=== PATIENT | female | born 2005 | race Two or more races ===

== ENCOUNTER 2025-01-26 10:36 | Outpatient (AMB) | payer MEDICAID, SELFPAY ==
[2025-01-26 11:11] VITALS: BP 112/70; PULSE 76; RESP 17; TEMP 36.2; O2SAT 98; BMI 28.0
--- NOTE | 2025-01-26 11:11 | AMB.OBINITIA ---
Vital Signs 01/26/25 11:11 Height 1.57 m Height Method Measured Weight 69.456 kg Weight Measurement Method Standing Scale BMI 28.0 BP 112/70 Blood Pressure Source Automatic Cuff Blood Pressure Location Right Upper Arm Position Sitting Respiration 17 Pulse 76 Pulse Source Monitor Temp 97.2 F Temp Source Temporal Artery Scan Pulse Oximetry (%) 98 Oxygen Delivery Method Room Air Allergies/Home Meds Allergies & Medications Allergies No Known Allergies Allergy (Verified 01/26/25 11:11) Medication Reconciliation vits no.126-ferrous fum 28 mg iron-folic acid 800 mcg tablet (Classic ) tab PO 01/26/25 [History Confirmed 01/26/25] Intake Visit Data Collection New Patient or Established: New Patient (never been to [facility]) Reason for Visit:: OBI TRANSFER Consent obtained for Telemed Visit: No Seen by Clinical Staff ONLY (RN/MA): No Restaurant Bartender Required: No Do You Feel Safe at Home: Yes Authorities Contacted: N/A PCP or OBGYN visit in last 3 months: No Hx Now: Yes Are you currently on any form of Control: No Last menstrual period: 06/21/24 Pain Present Currently: No Pain Scale Used: López-Benoit/Numerical Pain scale:: 0 Smoking Status Smoking Status: Never smoker Questionnaires Covid-19 Vaccine Questionnaire Has patient been vacinated for Covid-19 Have you been vacinated for Covid-19: No PHQ-9 PHQ-2 Over the last 2 weeks, how often have you been bothered by any of the following problems? 1. Little interest or pleasure in doing things: not at all 2. Feeling down, depressed, or hopeless: not at all Total score: 0 PHQ-9 3. Trouble falling or staying asleep, or sleeping too much: Not at all 4. Feeling tired or having little energy: Not at all 5. Poor appetite or overeating: Not at all 6. Feeling bad about yourself - or that you are a failure or have let yourself or your family down: Not at all 7. Trouble concentrating on things, such as reading the newspaper or watching television: Not at all 8. Moving or speaking so slowly that other people could have noticed? - Or the opposite - being so fidgety or restless that you have been moving around a lot more than usual: not at all 9. Thoughts that you would be better off or of hurting yourself in some way: Not at all Total score: 0 If you checked off any problems, how difficult have these problems made it for you to do your work, take care of things at home, or get along with other people?: not difficult at all Source: Developed by Drs. Jeramy Vila, Fátima Bobo, Celestino Reid and colleagues, with an educational eduar from [employer]. Social History Living Situation History Lives With: Family Housing: House Tobacco History Smoking Status: Never smoker Alcohol History Alcohol Intake: Never Domestic Abuse History Do You Feel Safe at Home: Yes History of Present Illness HPI Narrative 19-year-old 1 para 0 for OBI. Patient is a transfer from [facility] with records. She reports that she has not had any problems of the . Last. Was June 21, 2024. This gives due date March 28, 2025. First ultrasound was very 28. Patient was 8 weeks 2 and this confirmed dates. Patient also had an growth scan in December and this showed normal anatomy, normal fluid. EFW in the 36 percentile and good growth and confirm dates. Patient denies social habits. Denies surgery. Denies chronic illness. Patient is O+, antibody screen negative, RPR nonreactive, rubella immune, hepatitis B negative, hep C negative, HIV negative, GC and Chlamydia were negative. Patient's AFP, NIPT and carrier screens were all negative. Patient reports she passed her 1 hour GTT. Her A1c was 5.0. Fetus is active per patient. Denies leaking, denies bleeding, denies contractions OB Initial Visit OB Flowsheet OB Flowsheet Initial Weight: Not Recorded Date <del>?</del> EGA Weight BP Alb Glu CTX Pres Fundal ht FHR Mov Dilation Station Effacement Hx Notes Visit Note 01/26/25 <del>?</del> 31w 2d 69.456 kg 112/70 absent unknown 30 145 active 19 yo for OBI. IUP at 31 weeks. Patient declines Tdap today. Patient is a transfer from Dr. Joaquin's office with records. Denies social habits. Denies surgery. Denies chronic illness. Reports good movement. Denies leaking, bleeding, contractions. Reviewed labs and dates with patient. Discussed Tdap. Patient declines. labor precautions given. Increase fluids. Discussed diet and weight. Return in 2 weeks Menstrual History Menstrual reliability: definite Flow: normal Menstrual regularity: regular Monthly: Yes Age at menarche: 11 On control pills at conception: No Date of positive home test: 07/30/24 OB History : 1 Para: 0 Hx # Pregnancies: 0 Hx Total # of Abortions (Spontaneous & Elective): 0 # of Living Children: 0 Infection History & Risk Evaluation History of STDs: none HIV risk evaluation: low risk Hepatitis B risk evaluation: low risk Patient or partner has history of Genital Herpes: No Genetic Screening & History Genetic Screening/Teratology Counseling - Includes patient, baby's father, or anyone in either family with: 1. Patient's age 35 years or older as of estimated date of delivery: No 2. Thalassemia (Welsh, Upper Sorbian, Mediterranean, or Background); MCV less than 80: No 3. Neural Tube Defect (Meningomyelocele, Spina Bifida, or Anencephaly): No 4. Congenital Heart Defect: No 5. Down Syndrome: No 6. Harley-Sachs (Ashkenazi Anabaptism, Cajun, [place]ian [place]): No 7. Fredrick Disease (Ashkenazi Anabaptism): No 8. Familial Dysautonomia (Ashkenazi Anabaptism): No 9. Sickle Cell Disease or Trait (): No 10. Hemophilia or other blood disorders: No 11. Muscular Dystrophy: No 12. Cystic Fibrosis: No 13. Clarksdale's Chorea: No 14. Mental Retardation/Autism: No 15. Other inherited genetic or chromosomal disorder: No 16. Maternal Metabolic Disorder (EG,TYPE 1 Diabetes, PKU): No 17. Patient or baby's father had a child with defects not listed above: No 18. Recurrent loss or a stillbirth: No 19. Medications (including supplements, vitamins, herbs or otc drugs)/illicit/recreational drugs/alcohol since last menstrual period: No 20. Any other: No Infection History 1. Live with someone with TB or exposed to TB: No 2. Rash or viral illness since last menstrual period: No 3. Hepatitis B,C: No Other (see comments) Source: [employer] Review of Systems Review of Systems Systems Reviewed: All systems reviewed, normal except as documented Exam General Limitations: no limitations General Appearance: alert, in no apparent distress, comfortable, cooperative, healthy appearing, well developed and well groomed Head Head exam: atraumatic, normocephalic and normal inspection Chest Chest inspection: Present normal inspection and symmetric chest wall rise Resp Respiratory exam: Present normal lung sounds bilaterally Card Cardiovascular exam: Present regular rate, normal rhythm and normal heart sounds Abdominal Abdominal exam: Present soft and normal bowel sounds Psych Psychiatric exam: Present normal affect and normal mood Office Procedures OB Clinic LOC & Office Proc's Nursing/Assessment Patient Status: Initial/New Patient OB Clinic Nursing Assessment: Medication Reconciliation, Update PMH in EMR and Vital Signs OB Clinic Coordination of Care: Complex Care and Chronic Disease 1-5, Consent,records obtained, informed consent, Education Simp Pt/Fam, 4+ Authorizations needed, Lab and Imaging orders and Results/Orders obtained Special Needs: Heart tones New Patient Charge New Patient Point Assignment: [id number] New Patient Point Charge: ELECTRONIC INSTALLER Level 4 ([id number]) Assessment & Plan Diagnosis / Problem List (1) Encounter for supervision of normal first , third trimester: Status: Acute Plan Reviewed records and dates with patient. Continue vitamins. Increase fluids. Discussed Tdap with patient. Patient declined today. precautions reviewed with patient. Return in 2 weeks for recheck Additional Plan Follow Up: 2 Weeks (obc)
== END 2025-01-26 11:28 | disposition home or self-care (01) ==
LOC: HODSOBC 10:36
PROVIDERS: PCP Obstetrics & Gynecology; Referring Provider Obstetrics & Gynecology; Supervising Provider Advanced Practice Midwife; Visit Provider Advanced Practice Midwife
DX: Z34.03 Encounter for supervision of normal first pregnancy, third trimester (principal); Z3A.31 31 weeks gestation of pregnancy; Z28.21 Immunization not carried out because of patient refusal
CPT/HCPCS: 99204; G0463

== ENCOUNTER 2025-02-08 09:52 | Outpatient (AMB) | payer MEDICAID, SELFPAY ==
[2025-02-08 10:09] VITALS: BP 126/79; PULSE 98; RESP 16; TEMP 36.6; O2SAT 98; BMI 28.9
--- NOTE | 2025-02-08 10:09 | AMB.OBVISIT ---
Vital Signs 02/08/25 10:09 Height 1.57 m Height Method Stated Weight 71.271 kg Weight Measurement Method Standing Scale BMI 28.9 BP 126/79 Blood Pressure Source Automatic Cuff Blood Pressure Location Left Upper Arm Position Sitting Respiration 16 Pulse 98 Pulse Source Monitor Temp 98 F Temp Source Oral Pulse Oximetry (%) 98 Oxygen Delivery Method Room Air Allergies/Home Meds Allergies & Medications Allergies No Known Allergies Allergy (Verified 02/08/25 11:21) Medication Reconciliation vits no.126-ferrous fum 28 mg iron-folic acid 800 mcg tablet (Classic ) 1 tab PO QDAY 01/26/25 [History Confirmed 02/08/25] Intake Visit Data Collection New Patient or Established: Established Patient (seen at [facility] within 3 years) Reason for Visit:: CARE Seen by Clinical Staff ONLY (RN/MA): No Endoscopic Technician Required: No Do You Feel Safe at Home: Yes Authorities Contacted: N/A PCP or OBGYN visit in last 3 months: Yes Hx Now: Yes Are you currently on any form of Control: No Pain Present Currently: No Pain Scale Used: López-Benoit/Numerical Pain scale:: 0 Smoking Status Smoking Status: Never smoker Questionnaires Covid-19 Vaccine Questionnaire Has patient been vacinated for Covid-19 Have you been vacinated for Covid-19: Yes PHQ-9 PHQ-2 Over the last 2 weeks, how often have you been bothered by any of the following problems? 1. Little interest or pleasure in doing things: not at all 2. Feeling down, depressed, or hopeless: not at all Total score: 0 PHQ-9 3. Trouble falling or staying asleep, or sleeping too much: Not at all 4. Feeling tired or having little energy: Not at all 5. Poor appetite or overeating: Not at all 6. Feeling bad about yourself - or that you are a failure or have let yourself or your family down: Not at all 7. Trouble concentrating on things, such as reading the newspaper or watching television: Not at all 8. Moving or speaking so slowly that other people could have noticed? - Or the opposite - being so fidgety or restless that you have been moving around a lot more than usual: not at all 9. Thoughts that you would be better off or of hurting yourself in some way: Not at all Total score: 0 Source: Developed by Drs. Jeramy Vila, Fátima Bobo, Celestino Reid and colleagues, with an educational eduar from [employer]. Depression screen completed yes Social History Living Situation History Lives With: Family Housing: House Tobacco History Smoking Status: Never smoker Alcohol History Alcohol Intake: Never Domestic Abuse History Do You Feel Safe at Home: Yes Care OB Visit Log OB Flowsheet Initial Weight: Not Recorded Date <del>?</del> EGA Weight BP Alb Glu CTX Pres Fundal ht FHR Mov Dilation Station Effacement Hx Notes Visit Note 01/26/25 <del>?</del> 31w 2d 69.456 kg 112/70 absent unknown 30 145 active 19 yo for OBI. IUP at 31 weeks. Patient declines Tdap today. Patient is a transfer from Dr. Joaquin's office with records. Denies social habits. Denies surgery. Denies chronic illness. Reports good movement. Denies leaking, bleeding, contractions. Reviewed labs and dates with patient. Discussed Tdap. Patient declines. labor precautions given. Increase fluids. Discussed diet and weight. Return in 2 weeks 02/08/25 <del>?</del> 33w 1d 71.271 kg 126/79 occasional unknown 30 145 active reports good movement. Denies leaking or bleeding. Patient is taking her vitamins. She reports that she has a good appetite. Taking prenatals Patient to labor and delivery for NST BPP due to size date discrepancy. I will make a referral to Dr. Elliott for sonogram for evaluation of IUGR. Increase fluids. Continue vitamins. Discussed kick count twice a day and ER precautions. Return in 2 weeks ALBERT Calculator Estimated Delivery Date Method Current WG Current Estimate 03/28/25 LMP (Certain) 33w 1d Other Estimates 03/28/25 Ultrasound #1 33w 1d 03/28/25 Ultrasound #2 33w 1d Notes Visit Date: 01/26/25 Last Updated by: Essie Nevarez CNM 19 yo . lmp 06/21/24. EDC: 03/28/25. 1st sono: 08/18/24. IUP 8w2. EDC: 03/27/25. EFW: 36%OB panel: , O+,abs-, rpr;;nr, rub imm, hbsag-,hiv-,HC-, GC/CT-, 1 hr gtt normal, A1: 5.0, NIPT/AFP/carrier screen-. PAP PP Office Procedures OB Clinic LOC & Office Proc's Nursing/Assessment Patient Status: Established Patient OB Clinic Nursing Assessment: Medication Reconciliation, Update PMH in EMR and Vital Signs OB Clinic Coordination of Care: Complex Care and Chronic Disease 1-5, Consent,records obtained, informed consent, Education Simp Pt/Fam, Lab and Imaging orders, Results/Orders obtained and Staff clarify orders Special Needs: Heart tones Established Patient Charge Established Patient Point Assignment: 135 Established Patient Point Charge: EP Level 4 (120-155) Immunizations diphth,pertus(acell),tetanus 2.5 Lf unit-8 mcg-5 Lf/0.5mL IM syringe Performing Provider: Essie Nevarez CNM Performing Location: [facility] Administered by: Joselin Kearns MA on 02/08/25 13:35 Dose Route Admin Location Dispensed Lot Number Expiration Date [facility] Environmental Program Manager 0.5 mL IM Left Deltoid 0.5 mL [id number] 04/13/27 18891-222-56 [employer] VIS Given Date VIS Provided VIS Publication Date 02/08/25 Single Vaccine 24 Eligibility Eligibility Date Funding Source Public Non-[facility] Assessment & Plan Diagnosis / Problem List (1) Size of fetus inconsistent with dates in third trimester: Status: Acute Plan Discussed labor precautions. Kick count twice a day. Patient to labor and delivery for NST and BPP today. Schedule appointment with Dr. Elliott to evaluate for size dates discrepancy. Discussed ER precautions and danger signs symptoms increase fluids and return in 2 weeks OB check Additional Plan Follow Up: 2 Weeks (obc)
== END 2025-02-08 11:01 | disposition home or self-care (01) ==
LOC: HODSOBC 09:52
PROVIDERS: Supervising Provider Advanced Practice Midwife; Visit Provider Advanced Practice Midwife
DX: O09.893 Supervision of other high risk pregnancies, third trimester (principal); O26.843 Uterine size-date discrepancy, third trimester; Z3A.33 33 weeks gestation of pregnancy; Z23 Encounter for immunization
CPT/HCPCS: 90471; 90715; 99214; G0463

== ENCOUNTER 2025-02-08 11:13 | Outpatient (CLI) | payer MEDICAID, SELFPAY ==
[2025-02-08] VITALS (9 sets, daily range): BP systolic 130; BP diastolic 81; PULSE 63–74; RESP 16–98; TEMP 37; O2SAT 98–100; BMI 28.7
--- NOTE | 2025-02-08 11:22 | XR_ITS ---
Examination: Biophysical profile, ultrasound Date and time of exam: February 08, 2025 1132 hours INDICATIONS: Small for dates diagnosis Technique: Multiple transabdominal sonographic images of the pelvis abdomen obtained. Attention is directed to the breathing movement, gross body movement, amniotic fluid volume and tone. Findings: Amniotic fluid index 15.6 cm Total biophysical profile is 8 of 8. breathing movement is 2. Gross body movement is 2. tone is 2. Qualitative amniotic fluid volume is 2 Impression: Biophysical profile is 8 of 8.
== END 2025-02-08 13:30 | disposition home or self-care (01) ==
LOC: S4S1 11:17 → S4SX 11:20
PROVIDERS: Referring Provider Obstetrics & Gynecology; Visit Provider Obstetrics & Gynecology
DX: Z34.03 Encounter for supervision of normal first pregnancy, third trimester (principal); Z36.9 Encounter for antenatal screening, unspecified; Z3A.33 33 weeks gestation of pregnancy
CPT/HCPCS: 59025; 76819

== ENCOUNTER 2025-02-22 10:06 | Outpatient (AMB) | payer MEDICAID, SELFPAY ==
--- NOTE | 2025-02-22 10:09 | OBCLNT_ITS ---
Vital Signs 02/22/25 10:19 Height 1.57 m Height Method Stated Weight 72.745 kg Weight Measurement Method Standing Scale BMI 29.5 BP 117/67 Blood Pressure Source Automatic Cuff Blood Pressure Location Left Upper Arm Position Sitting Respiration 16 Pulse 75 Pulse Source Monitor Temp 97.2 F Temp Source Oral Pulse Oximetry (%) 98 Oxygen Delivery Method Room Air Allergies/Home Meds Allergies & Medications Allergies No Known Allergies Allergy (Verified 02/22/25 11:58) Medication Reconciliation vits no.126-ferrous fum 28 mg iron-folic acid 800 mcg tablet (Classic ) 1 tab PO QDAY 01/26/25 [History Confirmed 02/22/25] Intake Visit Data Collection New Patient or Established: Established Patient (seen at [facility] within 3 years) Reason for Visit:: OBC Seen by Clinical Staff ONLY (RN/MA): No Manager Database Required: No Do You Feel Safe at Home: Yes Authorities Contacted: N/A PCP or OBGYN visit in last 3 months: Yes Date of Last PCP or OBGYN visit: 02/08/25 Hx Now: Yes Are you currently on any form of Control: No Pain Present Currently: No Pain Scale Used: López-Benoit/Numerical Pain scale:: 0 Smoking Status Smoking Status: Never smoker Questionnaires Covid-19 Vaccine Questionnaire Has patient been vacinated for Covid-19 Have you been vacinated for Covid-19: Yes PHQ-9 PHQ-2 Over the last 2 weeks, how often have you been bothered by any of the following problems? 1. Little interest or pleasure in doing things: not at all 2. Feeling down, depressed, or hopeless: not at all Total score: 0 PHQ-9 3. Trouble falling or staying asleep, or sleeping too much: Not at all 4. Feeling tired or having little energy: Not at all 5. Poor appetite or overeating: Not at all 6. Feeling bad about yourself - or that you are a failure or have let yourself or your family down: Not at all 7. Trouble concentrating on things, such as reading the newspaper or watching television: Not at all 8. Moving or speaking so slowly that other people could have noticed? - Or the opposite - being so fidgety or restless that you have been moving around a lot more than usual: not at all 9. Thoughts that you would be better off or of hurting yourself in some way: Not at all Total score: 0 If you checked off any problems, how difficult have these problems made it for you to do your work, take care of things at home, or get along with other people?: not difficult at all Source: Developed by Drs. Jeramy Vila, Fátima Bobo, Celestino Reid and colleagues, with an educational eduar from [employer]. Depression screen completed yes Social History Living Situation History Lives With: Family Housing: House Tobacco History Smoking Status: Never smoker Second Hand Smoke Exposure: No Alcohol History Alcohol Intake: Never Domestic Abuse History Do You Feel Safe at Home: Yes Care OB Visit Log OB Flowsheet Initial Weight: Not Recorded Date -?-?-?-?-?-?-?-?-?-?-?-?- EGA Weight BP Alb Glu CTX Pres Fundal ht FHR Mov Dilation Station Effacement Hx Notes Visit Note 01/26/25 -?-?-?-?-?-?-?-?-?-?-?-?- 31w 2d 69.456 kg 112/70 absent unknown 30 145 active 19 yo for OBI. IUP at 31 weeks. Patient declines Tdap today. Patient is a transfer from Dr. Joaquin's office with records. Denies social habits. Denies surgery. Denies chronic illness. Reports good movement. Denies leaking, bleeding, con tractions. Reviewed labs an d dates with patient. Discussed Tdap. Patient declines. labor precautions given. Increase fluids. Discussed diet and weight. Return in 2 weeks 02/08/25 -?-?-?-?-?-?-?-?-?-?-?-?- 33w 1d 71.271 kg 126/79 occasional unknown 30 145 active reports good movement. Denies leaking or bleeding. Patient is taking her vitamins. She reports that she has a good appetite. Taking prenatals Patient to labor and delivery for NST BPP due to size date discrepancy. I will make a referral to Dr. Elliott for sonogram for evaluation of IUGR. Increase fluids. Continue vitamins. Discussed kick count twice a day and ER precautions. Return in 2 weeks 02/22/25 -?-?-?-?-?-?--?-?-?-?-?-?- 35w 1d 72.745 kg 117/67 occasional cephalic 33 135 active Reports good movement. Denies any signs symptoms of labor or labor. Denies leaking, denies bleeding, denies pressure. Occasional contractions Reports good movement. Denies any signs symptoms of labor or labor. Denies leaking, denies bleeding, denies pressure. Occasional contractions. sono results: BPP/NST reactive, 01/26, ARIELA:9. fetus measured 33w2 today, EFW:2224/12.8% GBS today. Referral to Dr. Elliott is pending. Discussed labor precautions and kick count twice a day. With parameters. I sent patient to in labor and delivery for NST BPP today. Schedule weekly NST BPP's continue vitamins and increase fluids. Return in a week OB check ALBERT Calculator Estimated Delivery Date Method Current WG Current Estimate 03/28/25 LMP (Certain) 35w 1d Other Estimates 03/28/25 Ultrasound #1 35w 1d 03/28/25 Ultrasound #2 35w 1d Notes Visit Date: 01/26/25 Last Updated by: Essie Nevarez, JEANNINE 19 yo . lmp 06/21/24. EDC: 03/28/25. 1st sono: 08/18/24. IUP 8w2. EDC: 03/27/25. EFW: 36%OB panel: 39//297, O+,abs-, rpr;;nr, rub imm, hbsag-,hiv-,HC-, GC/CT-, 1 hr gtt normal, A1: 5.0, NIPT/AFP/carrier screen-. PAP PP Office Procedures OB Clinic LOC & Office Proc's Nursing/Assessment Patient Status: Established Patient OB Clinic Nursing Assessment: Medication Reconciliation, Update PMH in EMR and Vital Signs OB Clinic Coordination of Care: Education Complex Pt/Fam, Consent,records obtained, informed consent, Lab and Imaging orders and Staff clarify orders Special Needs: Heart tones Miscellaneous Interventions: Pelvic Comp w/OB cult Established Patient Charge Established Patient Point Assignment: 125 Established Patient Point Charge: EP Level 4 (120-155) Assessment & Plan Diagnosis / Problem List (1) Encounter for supervision of normal first , third trimester: Status: Acute (2) Size of fetus inconsistent with dates in third trimester: Status: Acute Plan Patient to labor and delivery for NST BPP. Discussed kick count twice a day. Discussed parameters. Increase fluids. Follow-up with Dr. Elliott for ultrasound for size dates. Referrals pending. Continue prenatals. GBS today. Return in a week OB check Additional Plan Follow Up: 1 Week (obc)
[2025-02-22 10:19] VITALS: BP 117/67; PULSE 75; RESP 16; TEMP 36.2; O2SAT 98; BMI 29.5
== END 2025-02-22 10:50 | disposition home or self-care (01) ==
LOC: HODSOBC 10:06
PROVIDERS: Supervising Provider Advanced Practice Midwife; Visit Provider Advanced Practice Midwife
DX: O09.893 Supervision of other high risk pregnancies, third trimester (principal); O26.843 Uterine size-date discrepancy, third trimester; Z3A.35 35 weeks gestation of pregnancy; Z36.85 Encounter for antenatal screening for Streptococcus B
CPT/HCPCS: 99214; G0463

== ENCOUNTER 2025-02-22 11:09 | Observation (INO) | payer MEDICAID, SELFPAY ==
[2025-02-22 11:10] VITALS: BP 118/62; PULSE 75; RESP 18; RESP 98; TEMP 36.7; BMI 29.2
--- NOTE | 2025-02-22 11:13 | XR_ITS ---
Examination: Biophysical profile, ultrasound Date and time of exam: February 22, 2025 1118 hours INDICATIONS: Diagnosis intrauterine growth retardation Technique: Multiple transabdominal sonographic images of the pelvis abdomen obtained. Attention is directed to the breathing movement, gross body movement, amniotic fluid volume and tone. Findings: Amniotic fluid index 9.9 cm Total biophysical profile is 8 of 8. breathing movement is 2. Gross body movement is 2. tone is 2. Qualitative amniotic fluid volume is 2 Impression: Biophysical profile is 8 of 8.
[2025-02-22 11:35] VITALS: BP 118/62; PULSE 72; PULSE 73; O2SAT 98
--- NOTE | 2025-02-22 12:06 | XR_ITS ---
Examination: Complete OB ultrasound greater than 14 weeks Date and time of exam: February 22, 2025 1302 hours INDICATIONS: Intrauterine growth retardation diagnoses, size dates discrepancy. Findings: Viable intrauterine single fetus with single amniotic sac presentation cephalic Cardiac motion 132 BPM Placenta fundal grade 2 Umbilical cord insertion 3 vessel seen Amniotic fluid index 9.7 cm spine maternal right Cervix 4.0 cm Ovaries obscured by bowel gas. Composite estimated gestational age based on BPD, head circumference, abdominal circumference, femur length is 33 weeks 2 days Estimated weight 2224 g. Survey of intracranial anatomy, spinal anatomy, abdominal anatomy, four-chamber heart performed with no abnormalities identified. Impression: Viable intrauterine gestation cephalic presentation.
[2025-02-22] MEDS: RINGERS LACTATED 1000 ML 1,000 ML 999 ML IV (12:15)
== END 2025-02-22 14:13 | disposition home or self-care (01) ==
PROVIDERS: Admitting Provider Obstetrics & Gynecology; Visit Provider Obstetrics & Gynecology
DX: O36.5930 Maternal care for other known or suspected poor fetal growth, third trimester, not applicable or unspecified (principal); Z3A.33 33 weeks gestation of pregnancy
CPT/HCPCS: 59025; 59899; 76805; 76819; J7120

== ENCOUNTER 2025-03-06 11:05 | Outpatient (AMB) | payer MEDICAID, SELFPAY ==
--- NOTE | 2025-03-06 13:46 | OBCLNT_ITS ---
Vital Signs 03/06/25 13:48 Height 1.57 m Height Method Stated Weight 75.07 kg Weight Measurement Method Standing Scale BMI 30.4 BP 126/81 Blood Pressure Source Automatic Cuff Blood Pressure Location Left Upper Arm Position Sitting Respiration 16 Pulse 82 Pulse Source Monitor Temp 97.2 F Temp Source Oral Pulse Oximetry (%) 98 Oxygen Delivery Method Room Air Allergies/Home Meds Allergies & Medications Allergies No Known Allergies Allergy (Verified 03/06/25 13:51) Medication Reconciliation vits no.126-ferrous fum 28 mg iron-folic acid 800 mcg tablet (Classic ) 1 tab PO QDAY 01/26/25 [History Confirmed 03/06/25] Intake Visit Data Collection New Patient or Established: Established Patient (seen at [facility] within 3 years) Reason for Visit:: obc Seen by Clinical Staff ONLY (RN/MA): No Rollway Worker Required: No Do You Feel Safe at Home: Yes Authorities Contacted: N/A PCP or OBGYN visit in last 3 months: Yes Date of Last PCP or OBGYN visit: 03/05/25 Hx Now: Yes Are you currently on any form of Control: No Pain Present Currently: No Pain Scale Used: López-Benoit/Numerical Pain scale:: 0 Smoking Status Smoking Status: Never smoker Questionnaires Covid-19 Vaccine Questionnaire Has patient been vacinated for Covid-19 Have you been vacinated for Covid-19: Yes PHQ-9 PHQ-2 Over the last 2 weeks, how often have you been bothered by any of the following problems? 1. Little interest or pleasure in doing things: not at all 2. Feeling down, depressed, or hopeless: not at all Total score: 0 PHQ-9 3. Trouble falling or staying asleep, or sleeping too much: Not at all 4. Feeling tired or having little energy: Not at all 5. Poor appetite or overeating: Not at all 6. Feeling bad about yourself - or that you are a failure or have let yourself or your family down: Not at all 7. Trouble concentrating on things, such as reading the newspaper or watching television: Not at all 8. Moving or speaking so slowly that other people could have noticed? - Or the opposite - being so fidgety or restless that you have been moving around a lot more than usual: not at all 9. Thoughts that you would be better off or of hurting yourself in some way: Not at all If you checked off any problems, how difficult have these problems made it for you to do your work, take care of things at home, or get along with other people?: not difficult at all Source: Developed by Drs. Jeramy Vila, Fátima Bobo, Celestino Reid and colleagues, with an educational eduar from [employer]. Depression screen completed yes Social History Living Situation History Lives With: Family Housing: House Tobacco History Smoking Status: Never smoker Second Hand Smoke Exposure: No Alcohol History Alcohol Intake: Never Domestic Abuse History Do You Feel Safe at Home: Yes Care OB Visit Log OB Flowsheet Initial Weight: Not Recorded Date -?-?-?-?-?-?-?-?-?-?-?-?- EGA Weight BP Alb Glu CTX Pres Fundal ht FHR Mov Dilation Station Effacement Hx Notes Visit Note 01/26/25 -?-?-?-?-?-?-?-?-?-?-?-?- 31w 2d 69.456 kg 112/70 absent unknown 30 145 active 19 yo for OBI. IUP at 31 weeks. Patient declines Tdap today. Patient is a transfer from Dr. Joaquin's office with records. Denies social habits. Denies surgery. Denies chronic illness. Reports good movement. Denies leaking, bleeding, contractions. Reviewed labs an d dates with patient. Discussed Tdap. Patient declines. labor precautions given. Increase fluids. Discussed diet and weight. Return in 2 weeks 02/08/25 -?-?-?-?-?-?-?-?-?-?-?-?- 33w 1d 71.271 kg 126/79 occasional unknown 30 145 active reports good movement. Denies leaking or bleeding. Patient is taking her vitamins. She reports that she has a good appetite. Taking prenatals Patient to labor and delivery for NST BPP due to size date discrepancy. I will make a referral to Dr. Elliott for sonogram for evaluation of IUGR. Increase fluids. Continue vitamins. Discussed kick count twice a day and ER precautions. Return in 2 weeks 02/22/25 -?-?-?-?-?-?-?-?-?-?-?-?- 35w 1d 72.745 kg 117/67 occasional cephalic 33 135 active Reports good movement. Denies any signs symptoms of labor or labor. Denies leaking, denies bleeding, denies pressure. Occasional contractions Reports good movement. Denies any signs symptoms of labor or labor. Denies leaking, denies bleeding, denies pressure. Occasional contractions. sono results: BPP/NST reactive, 01/26, ARIELA:9. fetus measured 33w2 today, EFW:2224/12.8% GBS today. Referral to Dr. Elliott is pending. Discussed labor precautions and kick count twice a day. With parameters. I sent patient to in labor and delivery for NST BPP today. Schedule weekly NST BPP's continue vitamins and increase fluids. Return in a week OB check 03/06/25 -?-?-?-?-?-?-?-?-?-?-?-?- 36w 6d 75.07 kg 126/81 occasional cephalic 35 135 active Reports good movement. No complaints of labor. Denies leaking or bleeding. GBS negative. Will amend referral to Dr. Jensen. Discussed labor precautions and kick count twice a day. And patient will continue NST BPP twice a day. The plan is to schedule induction at 39 weeks ALBERT Calculator Estimated Delivery Date Method Current WG Current Estimate 03/28/25 LMP (Certain) 36w 6d Other Estimates 03/28/25 Ultrasound #1 36w 6d 03/28/25 Ultrasound #2 36w 6d Notes Visit Date: 03/06/25 Last Updated by: Essie Nevarez CNM GBS-. EFW 12%. Final albert: 03/28/25. IOL @ 39wk Visit Date: 01/26/25 Last Updated by: Essie Nevarez CNM 19 yo . lmp 06/21/24. EDC: 03/28/25. 1st sono: 08/18/24. IUP 8w2. EDC: 03/27/25. EFW: 36%OB panel: 39//297, O+,abs-, rpr;;nr, rub imm, hbsag-,hiv-,HC-, GC/CT-, 1 hr gtt normal, A1: 5.0, NIPT/AFP/carrier screen-. PAP PP Office Procedures OB Clinic LOC & Office Proc's Nursing/Assessment Patient Status: Established Patient OB Clinic Nursing Assessment: Medication Reconciliation, Update PMH in EMR and Vital Signs OB Clinic Coordination of Care: Education Complex Pt/Fam, Consent,records obtained, informed consent, Lab and Imaging orders, Results/Orders obtained and Staff clarify orders Special Needs: Heart tones Established Patient Charge Established Patient Point Assignment: 115 Established Patient Point Charge: EP Level 3 (80-115) Assessment & Plan Diagnosis / Problem List (1) Encounter for supervision of high risk in third trimester, antepartum: Status: Acute Plan Reroute ultrasound to Dr. Jensen. Discussed labor precautions. Kick counts twice a day. Reviewed GBS results. Continue biweekly NST BPP. Increase fluids return in a week OB check. Plan discussed induce at 39 weeks Additional Plan Follow Up: 1 Week (obc)
[2025-03-06 13:48] VITALS: BP 126/81; PULSE 82; RESP 16; TEMP 36.2; O2SAT 98; BMI 30.4
== END 2025-03-06 14:00 | disposition home or self-care (01) ==
LOC: HODSOBC 11:05
PROVIDERS: Supervising Provider Advanced Practice Midwife; Visit Provider Advanced Practice Midwife
DX: O09.93 Supervision of high risk pregnancy, unspecified, third trimester (principal); Z3A.36 36 weeks gestation of pregnancy
CPT/HCPCS: 99213; G0463

== ENCOUNTER 2025-03-19 11:10 | Outpatient (AMB) | payer MEDICAID, SELFPAY ==
[2025-03-19 11:38] VITALS: BP 123/80; PULSE 80; RESP 14; TEMP 36.4; O2SAT 97; BMI 31.0
--- NOTE | 2025-03-19 11:38 | AMB.OBVISIT ---
Vital Signs 03/19/25 11:38 Height 1.57 m Height Method Stated Weight 76.43 kg Weight Measurement Method Standing Scale BMI 31.0 BP 123/80 Blood Pressure Source Automatic Cuff Blood Pressure Location Left Upper Arm Position Sitting Respiration 14 Pulse 80 Pulse Source Monitor Temp 97.6 F Temp Source Oral Pulse Oximetry (%) 97 Oxygen Delivery Method Room Air Allergies/Home Meds Allergies & Medications Allergies No Known Allergies Allergy (Verified 03/19/25 11:39) Medication Reconciliation vits no.126-ferrous fum 28 mg iron-folic acid 800 mcg tablet (Classic ) 1 tab PO QDAY 01/26/25 [History Confirmed 03/19/25] Intake Visit Data Collection New Patient or Established: Established Patient (seen at [facility] within 3 years) Reason for Visit:: CARE Seen by Clinical Staff ONLY (RN/MA): No Outreach Specialist Required: No Do You Feel Safe at Home: Yes Authorities Contacted: N/A PCP or OBGYN visit in last 3 months: Yes Hx Now: Yes Are you currently on any form of Control: No Pain Present Currently: No Pain Scale Used: López-Benoit/Numerical Pain scale:: 0 Smoking Status Smoking Status: Never smoker Questionnaires Covid-19 Vaccine Questionnaire Has patient been vacinated for Covid-19 Have you been vacinated for Covid-19: Yes PHQ-9 PHQ-2 Over the last 2 weeks, how often have you been bothered by any of the following problems? 1. Little interest or pleasure in doing things: not at all 2. Feeling down, depressed, or hopeless: not at all Total score: 0 PHQ-9 3. Trouble falling or staying asleep, or sleeping too much: Not at all 4. Feeling tired or having little energy: Not at all 5. Poor appetite or overeating: Not at all 6. Feeling bad about yourself - or that you are a failure or have let yourself or your family down: Not at all 7. Trouble concentrating on things, such as reading the newspaper or watching television: Not at all 8. Moving or speaking so slowly that other people could have noticed? - Or the opposite - being so fidgety or restless that you have been moving around a lot more than usual: not at all 9. Thoughts that you would be better off or of hurting yourself in some way: Not at all Total score: 0 Source: Developed by Drs. Jeramy Vila, Fátima Bobo, Celestino Reid and colleagues, with an educational eduar from [employer]. Depression screen completed yes Social History Living Situation History Lives With: Family Housing: House Tobacco History Smoking Status: Never smoker Second Hand Smoke Exposure: No Alcohol History Alcohol Intake: Never Domestic Abuse History Do You Feel Safe at Home: Yes Care OB Visit Log OB Flowsheet Initial Weight: Not Recorded Date <del>?</del> EGA Weight BP Alb Glu CTX Pres Fundal ht FHR Mov Dilation Station Effacement Hx Notes Visit Note 01/26/25 <del>?</del> 31w 2d 69.456 kg 112/70 absent unknown 30 145 active 19 yo for OBI. IUP at 31 weeks. Patient declines Tdap today. Patient is a transfer from Dr. Joaquin's office with records. Denies social habits. Denies surgery. Denies chronic illness. Reports good movement. Denies leaking, bleeding, contractions. Reviewed labs and dates with patient. Discussed Tdap. Patient declines. labor precautions given. Increase fluids. Discussed diet and weight. Return in 2 weeks 02/08/25 <del>?</del> 33w 1d 71.271 kg 126/79 occasional unknown 30 145 active reports good movement. Denies leaking or bleeding. Patient is taking her vitamins. She reports that she has a good appetite. Taking prenatals Patient to labor and delivery for NST BPP due to size date discrepancy. I will make a referral to Dr. Elliott for sonogram for evaluation of IUGR. Increase fluids. Continue vitamins. Discussed kick count twice a day and ER precautions. Return in 2 weeks 02/22/25 <del>?</del> 35w 1d 72.745 kg 117/67 occasional cephalic 33 135 active Reports good movement. Denies any signs symptoms of labor or labor. Denies leaking, denies bleeding, denies pressure. Occasional contractions Reports good movement. Denies any signs symptoms of labor or labor. Denies leaking, denies bleeding, denies pressure. Occasional contractions. sono results: BPP/NST reactive, 01/26, ARIELA:9. fetus measured 33w2 today, EFW:2224/12.8% GBS today. Referral to Dr. Elliott is pending. Discussed labor precautions and kick count twice a day. With parameters. I sent patient to in labor and delivery for NST BPP today. Schedule weekly NST BPP's continue vitamins and increase fluids. Return in a week OB check 03/06/25 <del>?</del> 36w 6d 75.07 kg 126/81 occasional cephalic 35 135 active Reports good movement. No complaints of labor. Denies leaking or bleeding. GBS negative. Will amend referral to Dr. Jensen. Discussed labor precautions and kick count twice a day. And patient will continue NST BPP twice a day. The plan is to schedule induction at 39 weeks 03/19/25 <del>?</del> 38w 5d 76.43 kg 123/80 occasional cephalic 37 123 active 1 -3 Reports good movement. Denies contractions. Denies leaking. Denies bleeding. Increased pressure. Patient has NST scheduled for today. Schedule induction of labor for March 24, 2025. Discussed induction with patient. Discussed labor precautions and kick count bid. Discussed danger signs and symptoms and ER precautions. ALBERT Calculator Estimated Delivery Date Method Current WG Current Estimate 03/28/25 LMP (Certain) 38w 5d Other Estimates 03/28/25 Ultrasound #1 38w 5d 03/28/25 Ultrasound #2 38w 5d Notes Visit Date: 03/06/25 Last Updated by: Essie Nevarez CNM GBS-. EFW 12%. Final albert: 03/28/25. IOL @ 39wk Visit Date: 01/26/25 Last Updated by: Essie Nevarez CNM 19 yo . lmp 06/21/24. EDC: 03/28/25. 1st sono: 08/18/24. IUP 8w2. EDC: 03/27/25. EFW: 36%OB panel: , O+,abs-, rpr;;nr, rub imm, hbsag-,hiv-,HC-, GC/CT-, 1 hr gtt normal, A1: 5.0, NIPT/AFP/carrier screen-. PAP PP Office Procedures OBC Clinic LOC & Office Proc's Nursing/Assessment Patient Status: Established Patient OB Clinic Nursing Assessment: Medication Reconciliation, Update PMH in EMR and Vital Signs OB Clinic Coordination of Care: Complex Care and Chronic Disease 1-5, Consent,records obtained, informed consent, Education Simp Pt/Fam, 1 Ins Authorization, Lab and Imaging orders, Results/Orders obtained and Staff clarify orders Special Needs: Heart tones Established Patient Charge Established Patient Point Assignment: 150 Established Patient Point Charge: EP Level 4 (120-155) Assessment & Plan Diagnosis / Problem List (1) size inconsistent with dates: Status: Acute (2) Encounter for supervision of high risk in third trimester, antepartum: Status: Acute Plan Schedule induction of labor March 24. Discussed labor precautions. Kick count twice a day. Discussed danger signs symptoms and ER precautions. Schedule NST BPP today Additional Plan Follow Up: 1 Week (obc)
== END 2025-03-19 11:58 | disposition home or self-care (01) ==
LOC: HODSOBC 11:10
PROVIDERS: Supervising Provider Advanced Practice Midwife; Visit Provider Advanced Practice Midwife
DX: O09.893 Supervision of other high risk pregnancies, third trimester (principal); O26.843 Uterine size-date discrepancy, third trimester; Z3A.38 38 weeks gestation of pregnancy
CPT/HCPCS: 99214; G0463

== ENCOUNTER 2025-03-22 13:31 | Outpatient (RCR) | payer MEDICAID, SELFPAY ==
--- NOTE | 2025-03-01 14:09 | XR_ITS ---
Examination: Biophysical profile, ultrasound Date and time of exam: March 01, 2025 1413 hours INDICATIONS: Diagnosis intrauterine growth retardation Technique: Multiple transabdominal sonographic images of the pelvis abdomen obtained. Attention is directed to the breathing movement, gross body movement, amniotic fluid volume and tone. Findings: Amniotic fluid index 16.1 cm Total biophysical profile is 8 of 8. breathing movement is 2. Gross body movement is 2. tone is 2. Qualitative amniotic fluid volume is 2 Impression: Biophysical profile is 8 of 8.
[2025-03-01 14:41] VITALS: BP 122/73; PULSE 71; RESP 16; TEMP 36.8
--- NOTE | 2025-03-05 13:43 | XR_ITS ---
Examination: Biophysical profile, ultrasound Date and time of exam: March 05, 2025 1420 hours INDICATIONS: Diagnosis intrauterine growth retardation Technique: Multiple transabdominal sonographic images of the pelvis abdomen obtained. Attention is directed to the breathing movement, gross body movement, amniotic fluid volume and tone. Findings: Amniotic fluid index 13.1 cm Total biophysical profile is 8 of 8. breathing movement is 2. Gross body movement is 2. tone is 2. Qualitative amniotic fluid volume is 2 Impression: Biophysical profile is 8 of 8.
[2025-03-05 14:36] VITALS: BP 123/66; PULSE 79; RESP 16; TEMP 36.7
--- NOTE | 2025-03-08 13:48 | XR_ITS ---
Examination: Biophysical profile, ultrasound Date and time of exam: March 08, 2025 1407 hours INDICATIONS: Diagnosis intrauterine growth retardation Technique: Multiple transabdominal sonographic images of the pelvis abdomen obtained. Attention is directed to the breathing movement, gross body movement, amniotic fluid volume and tone. Findings: Amniotic fluid index 13.8 cm Total biophysical profile is 8 of 8. breathing movement is 2. Gross body movement is 2. tone is 2. Qualitative amniotic fluid volume is 2 Impression: Biophysical profile is 8 of 8.
[2025-03-08 14:25] VITALS: BP 119/70; PULSE 63; RESP 16; TEMP 36.7
--- NOTE | 2025-03-12 13:34 | XR_ITS ---
Examination: Biophysical profile, ultrasound Date and time of exam: March 12, 2025 1347 hours INDICATIONS: Intrauterine growth retardation diagnoses Technique: Multiple transabdominal sonographic images of the pelvis abdomen obtained. Attention is directed to the breathing movement, gross body movement, amniotic fluid volume and tone. Findings: Amniotic fluid index 5.9 cm Total biophysical profile is 8 of 8. breathing movement is 2. Gross body movement is 2. tone is 2. Qualitative amniotic fluid volume is 2 Impression: Biophysical profile is 8 of 8.
[2025-03-12 14:16] VITALS: BP 119/71; PULSE 83; RESP 16; TEMP 36.8
--- NOTE | 2025-03-15 13:40 | XR_ITS ---
Examination: Biophysical profile, ultrasound Date and time of exam: March 15, 2025, 1340 hours INDICATIONS: Diagnosis intrauterine growth retardation Technique: Multiple transabdominal sonographic images of the pelvis abdomen obtained. Attention is directed to the breathing movement, gross body movement, amniotic fluid volume and tone. Findings: Amniotic fluid index 10.4 cm Total biophysical profile is 8 of 8. breathing movement is 2. Gross body movement is 2. tone is 2. Qualitative amniotic fluid volume is 2 Impression: Biophysical profile is 8 of 8.
[2025-03-15 14:39] VITALS: BP 124/82; PULSE 76; RESP 16; TEMP 36.7
--- NOTE | 2025-03-19 13:59 | XR_ITS ---
Examination: Biophysical profile, ultrasound Date and time of exam: March 19, 2025, 1406 hours INDICATIONS: Diagnosis intrauterine growth retardation Technique: Multiple transabdominal sonographic images of the pelvis abdomen obtained. Attention is directed to the breathing movement, gross body movement, amniotic fluid volume and tone. Findings: Amniotic fluid index 9.3 cm Total biophysical profile is 8 of 8. breathing movement is 2. Gross body movement is 2. tone is 2. Qualitative amniotic fluid volume is 2 Impression: Biophysical profile is 8 of 8.
[2025-03-19 14:39] VITALS: BP 129/74; PULSE 68; RESP 16; TEMP 36.7
--- NOTE | 2025-03-22 13:35 | XR_ITS ---
Examination: Biophysical profile, ultrasound Date and time of exam: March 22, 2025, 1335 hours INDICATIONS: Diagnosis intrauterine growth retardation Technique: Multiple transabdominal sonographic images of the pelvis abdomen obtained. Attention is directed to the breathing movement, gross body movement, amniotic fluid volume and tone. Findings: Amniotic fluid index 5.7 cm Total biophysical profile is 8 of 8. breathing movement is 2. Gross body movement is 2. tone is 2. Qualitative amniotic fluid volume is 2 Impression: Biophysical profile is 8 of 8.
[2025-03-22 14:18] VITALS: BP 121/61; PULSE 71; RESP 16; TEMP 36.5
== END 2025-03-22 23:59 | disposition home or self-care (01) ==
LOC: S4S1 13:31
PROVIDERS: Referring Provider Advanced Practice Midwife; Visit Provider Advanced Practice Midwife
DX: O36.5930 Maternal care for other known or suspected poor fetal growth, third trimester, not applicable or unspecified (principal); O26.843 Uterine size-date discrepancy, third trimester; Z3A.39 39 weeks gestation of pregnancy
CPT/HCPCS: 59025; 76819

== ENCOUNTER 2025-03-23 17:45 | Inpatient (IN) | payer MEDICAID, SELFPAY ==
[2025-03-23] VITALS (26 sets, daily range): BP systolic 119–143; BP diastolic 61–86; PULSE 65–87; RESP 16–99; TEMP 36.8–37.1; O2SAT 95–100; BMI 30.7
--- NOTE | 2025-03-23 15:48 | XR_ITS ---
Examination: Biophysical profile, ultrasound Date and time of exam: March 23, 2025, 1607 hrs. Indications: Low amniotic fluid index 5.7 cm on sonogram March 22, 2025, diagnosis intrauterine growth retardation Technique: Multiple transabdominal sonographic images of the pelvis abdomen obtained. Attention is directed to the breathing movement, gross body movement, amniotic fluid volume and tone. Findings: Amniotic fluid index 14.7 cm Total biophysical profile is 8 of 8. breathing movement is 2. Gross body movement is 2. tone is 2. Qualitative amniotic fluid volume is 2 Impression: Biophysical profile is 8 of 8.
[2025-03-23 18:37] LABS: Basophils # (Auto) 0.0 Thou/mm3 (0.0-0.2); Basophils % (Auto) 0 % (0-2.5); Eosinophils # (Auto) 0.1 Thou/mm3 (0.0-0.5); Eosinophils % (Auto) 1 % (0-10); Hematocrit 37.2 % (36.0-46.0); Hemoglobin 12.5 g/dL (12.0-16.0); Immature Granulocytes Auto 0.07 Thou/mm3 (0.00-0.00); Lymphocytes # (Auto) 2.6 Thou/mm3 (1.0-4.8); Lymphocytes % (Auto) 23 % (10-50); Mean Corpuscular HGB Conc 33.6 g/dl (31.0-37.0); Mean Corpuscular Hemoglobin 31.5 pg (25.0-35.0); Mean Corpuscular Volume 94 fL (80-100); Monocytes # (Auto) 1.1 Thou/mm3 (0.0-0.8); Monocytes % (Auto) 9 % (0-12); Neutrophils # (Auto) 7.5 Thou/mm3 (1.8-7.7); Neutrophils % (Auto) 66 % (37-80); Nucleated Red Blood Cell # 0.00 Thou/mm3 (0.00-0.00); Nucleated Red Blood Cell % 0 /100 WBC (0); Platelet Count 192 Thou/mm3 (140-440); RDW Standard Deviation 47.4 fL (36.4-46.3); Red Blood Count 3.97 Miln/mm3 (4.00-5.20); White Blood Count 11.4 Thou/mm3 (3.6-11.0)
[2025-03-23 19:05] LABS: Syphilis Nonreactive (Nonreactive)
[2025-03-24] VITALS (45 sets, daily range): BP systolic 107–156; BP diastolic 52–91; PULSE 58–179; RESP 14–19; TEMP 36.5–37.2; O2SAT 96–98
[2025-03-24] MEDS: fentaNYL CIT INJ 50 mCg/ML AMP 2ML 100 MCG IVP ×3 (04:20→07:51)
--- NOTE | 2025-03-24 06:59 | ESHP_ITS ---
Documentation for date of: 03/24/25 OB Labor/Induct. HPI History of Present Illness Chief complaint: Induction of labor for oligohydramnios : 1 Para: 0 Term pregnancies: 0 pregnancies: 0 Living children: 0 History of Abortions: Spontaneous and Elective: 0 History of Vaginal deliveries: 0 History of sections: No History of : No ALBERT: 03/28/25 History of present illness: 19-year-old 1 para 0 at 39 weeks and 3 days presented to labor and delivery triage for ultrasound for repeat ARIELA. Patient receives care with JEANNINE Nevarez and she has been monitored for borderline ARIELA and borderline IUGR for the last few weeks. ARIELA today is improved at 14.4, however the baby has marked variability with wandering baseline. Patient was scheduled for induction of labor tomorrow. She is being admitted for induction. Patient denies any contractions or leakage of fluid or vaginal bleeding and reports adequate movements Her records were reviewed as scanned History of Present Adequate Care: Yes Labs Labs: Negative: RPR, Hepatitis B, Rubella Titre, HIV, Chlamydia, Gonorrhea and Group Beta Strep and Unknown: Herpes Type 1, Herpes Type 2 and Covid-19 Review of Systems Review of Systems Systems Reviewed: All systems reviewed, normal except as documented Past Medical History Surgical History SURGICAL: Negative Section Meds Home Medications and Allergies Home Medications ?Medication ?Instructions ?Recorded ?Confirmed ?Type vits no.126-ferrous fum 1 tab PO QDAY 5 03/23/25 History 28 mg iron-folic acid 800 mcg tablet (Classic ) Allergies Allergy/AdvReac Type Severity Reaction Status Date / Time No Known Allergies Allergy Verified 03/23/25 15:48 OB Exam Physical Exam Vital signs: Temp Pulse Resp BP Pulse Ox O2 Del Method 97.9 F 58 L 14 132/63 H 100 Room Air 03/24/25 05:00 03/24/25 04:54 03/24/25 05:00 03/24/25 04:54 03/23/25 17:35 03/23/25 20:15 Constitutional Constitutional: no acute distress Routine HEENT Exam Head: Present normocephalic and atraumatic Eye: Present EOMI and PERRL ENT: Present mucous membranes moist Routine Neck Exam Neck: Present supple and trachea midline Routine Cardiovascular Exam Cardiovascular: Present RRR Routine Abdominal Exam Abdominal: Present soft and normoactive bowel sounds Detailed Labor and Delivery Exam Dilation (cm): 1 Effacement (%): 0 station: -4 Consistency: firm Baseline heart rate: 145 monitor decelerations: None watermaster variability: Marked (>25) Contraction frequency (min): 10-12 Routine Extremities Exam Extremities: Present full ROM Routine Skin Exam Skin: Present intact, dry and warm Routine Neurological Exam Neurological: Present alert, oriented X3 and CN II-XII intact Routine Psychiatric Exam Psychiatric: Present normal affect and normal thought process OB Results Labs 03/23/25 17:30 Labs: Short CBC 03/23/25 Range/Units 17:30 WBC 11.4 H (3.6-11.0) Thou/mm3 Hgb 12.5 (12.0-16.0) g/dL Hct 37.2 (36.0-46.0) % Plt Count 192 (140-440) Thou/mm3 OB Assessment & Plan Assessment and Plan (1) size inconsistent with dates: Status: Acute Assessment and plan: Admit to inpatient status for induction of labor IV access, LR at 125 cc/h Labs to include CBC type and screen RPR GBS negative Continuous maternal monitoring Epidural when desired Initiate cervical ripening with Cervidil, further management depending on labor progress
[2025-03-24] MEDS: RINGERS LACTATED 1000 ML 1,000 ML 100 ML IV (08:19)
--- NOTE | 2025-03-24 09:15 | PD.LDPN ---
Documentation for date of: 03/24/25 OB Labor Progress Note Pain Control Comments: Patient is a 19-year-old G1, P0 who is in labor. She was being induced with the Cervidil progressed to 4-5. I examined the patient around 9:00 in the morning she is having a lot of pain and she is 9 cm dilated. Amniotomy was performed bloody clear fluid noted. Pelvic Exam Dilation (cm): 9 Effacement (%): 90 station: 0 Amniotic membrane status: Ruptured Contractions Monitor mode: External Contraction frequency: 1-3 Contraction pattern: Tachysystole Contraction intensity: Strong Status status: Category l Assessment and Plan Assessment: induction ongoing Plan OB labor note: continuous present management
[2025-03-24] MEDS: MINERAL OIL 30 ML UDC TOP (09:45)
[2025-03-24] MEDS: OXYTOCIN in NS 20 units 20 UNIT/1,000 ML BAG 125 UNIT IV (09:56)
[2025-03-24] MEDS: LIDOCAINE HCL 1% 20 ML VIAL INFL (10:05)
[2025-03-24] MEDS: BENZO/LANO/ALOE (Dermoplast) 60 GM CAN 1 SPRAY TOP (10:06)
[2025-03-24] MEDS: IBUPROFEN TAB 400 MG TABLET 800 MG PO (10:07)
--- NOTE | 2025-03-24 10:48 | OBDSUM_ITS ---
Data ([place]) Data Hx Section: No Maternal Blood Type: O Pos Rubella Titre: Positive RPR: Non-reactive Labs: Negative: RPR, Hepatitis B, HIV, Chlamydia, Gonorrhea and Group Beta Strep : 1 Term: 0 : 0 Livin Abortions: Spontaneous & Theraputic: 0 Delivery Data ([place]) Labor Data Initiation of labor: Induction Induction/Augmentation Agent: Cervidil and Artificial ROM ROM date: 03/24/25 ROM time: 08:55 Amniotic membrane rupture type: Artificial Amniotic fluid description: Blood Tinged Delivery Data EDC: 03/24/25 EDC calculated by:: LMP/early US confirmation Date of arrival to unit: 03/28/25 Onset of labor date: 03/24/25 Onset of labor time: 06:30 Complete dilation date: 03/24/25 Complete dilation time: 09:37 delivery date: 03/24/25 delivery time: 09:50 Gestational age (weeks): 39 Gestational age (days): 3 Placenta delivery date: 03/24/25 Placenta delivery time: 09:55 Stage 1 total time: Labor - Stage 1 Duration 3 hours and 7 minutes Delivered by: Ka[facility] Cur[facility] ([facility]) Delivery nurse: LAURIE Feliz [place] nurse: LAURIE [employer] Pilot at delivery: No Support person(s) at delivery: FOB, Mother of pt. Other staff at delivery: LAURIE Razo, talent acquisition relationship managerdirector of product marketing Method Delivery method: Normal Vaginal Delivery Presentation: Vertex position: OA Anesthesia Type Anesthesia Type: Local Delivery Room Medications Delivery room medications: Lidocaine (local) and Pitocin 20 u IV Placenta Placenta delivery description: Spontaneous Cord blood sent to lab: Yes cord blood collection: Cord Blood Type Episiotomy Episiotomy description: Midline Perineal repair Sutures used for repair: 4.0 Chromic and other (2-0 chromic) EBL Estimated blood loss (ml): 100 Umbilical Cord cord description: 3 Vessels Additional Procedures The patient is a 19-year-old G1, P0 admitted for an induction of labor secondary to suspected small for gestational age . She had Cervidil placed overnight and progressed to 4 to 5 cm dilatation by about 7:00 in the morning on 03/24/2025. She did not desire epidural. The patient then began having some bloody show and broke her bag and felt a lot of pressure. She progressed to 9 cm by about 0915 and then was complete by 9:37 AM. The baby started to have some deep variable decelerations to the 90s from the 120s. So the patient began pushing. She pushed on her left then right side then on her back. The team was called in in case a vacuum was needed, however the patient was able to push very effectively and she delivered a liveborn female at 0950. Findings :liveborn female in the JESSICA presentation with no nuchal cord and no meconium. The baby did have a short umbilical cord. Apgars were 8 and 9 weight was 6 pounds 10 ounces. As the baby was vigorous at , the baby was placed directly on her mother's chest and delayed cord clamping was performed for 2 minutes. The cord was clamped cut and the infant was handed back to mom to be placed on her chest. Cord gases were saved. Cord blood was sent. The placenta was complete, spontaneous and grossly normal delivering at 9:55 AM. The patient had a small midline episiotomy performed at delivery secondary to decelerations that a midline first-degree episiotomy.. This was repaired in a standard fashion using 2-0 and 4-0 chromic. Complications were none. Condition both mom and infant were in stable condition the delivery room. EBL was 100 cc. Complications Complications: None [place] Data ([place]) [place] Data order: 1 's gender: Female Identification band number: [id number] weight (gms): 2990 g Weight (pounds): 6 lbs and 9.5 ozs length: 52.07 cm 1 minute: 8 5 minutes: 9
[2025-03-24] MEDS: DOCUSATE SOD 100 MG CAPSULE PO ×2 (13:56→20:51)
[2025-03-24 17:01] LABS: Basophils # (Auto) 0.0 Thou/mm3 (0.0-0.2); Basophils % (Auto) 0 % (0-2.5); Eosinophils # (Auto) 0.1 Thou/mm3 (0.0-0.5); Eosinophils % (Auto) 0 % (0-10); Hematocrit 36.8 % (36.0-46.0); Hemoglobin 12.4 g/dL (12.0-16.0); Immature Granulocytes Auto 0.09 Thou/mm3 (0.00-0.00); Lymphocytes # (Auto) 2.0 Thou/mm3 (1.0-4.8); Lymphocytes % (Auto) 10 % (10-50); Mean Corpuscular HGB Conc 33.7 g/dl (31.0-37.0); Mean Corpuscular Hemoglobin 31.2 pg (25.0-35.0); Mean Corpuscular Volume 93 fL (80-100); Monocytes # (Auto) 1.3 Thou/mm3 (0.0-0.8); Monocytes % (Auto) 7 % (0-12); Neutrophils # (Auto) 15.8 Thou/mm3 (1.8-7.7); Neutrophils % (Auto) 82 % (37-80); Nucleated Red Blood Cell # 0.00 Thou/mm3 (0.00-0.00); Nucleated Red Blood Cell % 0 /100 WBC (0); Platelet Count 168 Thou/mm3 (140-440); RDW Standard Deviation 45.9 fL (36.4-46.3); Red Blood Count 3.98 Miln/mm3 (4.00-5.20); White Blood Count 19.3 Thou/mm3 (3.6-11.0)
[2025-03-25 04:02] VITALS: BP 122/77; PULSE 83; RESP 16; TEMP 37.2; O2SAT 97
[2025-03-25 07:34] VITALS: BP 124/78; PULSE 76; RESP 20; TEMP 36.8; O2SAT 96
--- NOTE | 2025-03-25 08:06 | ESPR_ITS ---
Subjective Subjective Interval history: Delivery type: Patient doing well this morning. No acute complaints. Ambulating, tolerating p.o., and voiding without difficulty. HTN/Pre-E screen negative: No CP, SOB, CALDWELL, visual changes, RUQ pain. : [/No] Lochia: diminishing Bowel: Flatus + / BM + Exam Vital Signs Temp Pulse Resp BP Pulse Ox O2 Del Method 98.2 F 76 20 124/78 96 Room Air 03/25/25 07:34 03/25/25 07:34 03/25/25 07:34 03/25/25 07:34 03/25/25 07:34 03/25/25 07:34 Constitutional Constitutional: no acute distress Routine HEENT Exam Head: Present normocephalic and atraumatic Eye: Present EOMI and PERRL ENT: Present mucous membranes moist Routine Neck Exam Neck: Present supple and trachea midline Routine Respiratory Exam Respiratory: Present chest non-tender, lungs clear, normal breath sounds and no resp distress Routine Cardiovascular Exam Cardiovascular: Present RRR Routine Abdominal Exam Abdominal: Present soft and normoactive bowel sounds Routine Extremities Exam Extremities: Present full ROM Routine Skin Exam Skin: Present intact, dry and warm Routine Neurological Exam Neurological: Present alert, oriented X3 and CN II-XII intact Routine Psychiatric Exam Psychiatric: Present normal affect and normal thought process Objective Labs 03/24/25 16:53 Labs: Laboratory Results - last 24 hr 03/24/25 16:53 WBC 19.3 H D RBC 3.98 L Hgb 12.4 Hct 36.8 MCV 93 MCH 31.2 MCHC 33.7 RDW Std Deviation 45.9 Plt Count 168 Neut % (Auto) 82 H Lymph % (Auto) 10 [place] % (Auto) 7 Eos % (Auto) 0 Baso % (Auto) 0 Neut # (Auto) 15.8 H Lymph # (Auto) 2.0 [place] # (Auto) 1.3 H Eos # (Auto) 0.1 Baso # (Auto) 0.0 Immature Gran # (Auto) 0.09 H Absolute Nucleated RBC 0.00 Immature Gran % 1 H Nucleated RBC % 0 Assessment & Plan Problem List (1) size inconsistent with dates: Status: Acute (2) Vaginal delivery: Status: Acute Assessment and plan: 1. Continue routine /post-op care 2. Labs reviewed, cbc appropriate 3. Remove dressing/Klein 4. Encourage to ambulate, shower 5. Encourage PO intake, breast feeding Time Spent With Patient Time: Total time spent is greater than 50% in coordination of care (as documented) at patient's floor/unit and/or counseling patient:
--- NOTE | 2025-03-25 08:08 | ESDS_ITS ---
DS: Providers Provider Date of admission: 03/24/25 09:55 Primary care physician: Physician No Primary/Family Admitting Provider: Wlili Cook MD Attending Provider on Admission: Willi Cook MD Consults: 03/24/25 10:46 Referral Routine Comment: Attending Provider on DC: Willi Cook MD Discharging Provider: Willi Cook MD DS: Diagnosis Discharge Diagnosis (1) Vaginal delivery: Status: Acute (2) size inconsistent with dates: Status: Acute Problem List Completed Was Problem List Reviewed/Reconciled?: Yes Summary/Hosp Course Brief History: 19-year-old 1 para 0 at 39 weeks and 3 days presented to labor and delivery triage for ultrasound for repeat ARIELA. Patient receives care with JEANNINE Nevarez and she has been monitored for borderline ARIELA and borderline IUGR for the last few weeks. ARIELA today is improved at 14.4, however the baby has marked variability with wandering baseline. Patient was scheduled for induction of labor tomorrow. She is being admitted for induction. Patient denies any contractions or leakage of fluid or vaginal bleeding and reports adequate movements Her records were reviewed as scanned Peripartum Data Delivery Method: Normal Vaginal Delivery Episiotomy Description: Midline Time Spent with Patient Time attestation: Total time spent providing and/or coordinating discharge services: Exam Vital Signs Temp Pulse Resp BP Pulse Ox O2 Del Method 98.2 F 76 20 124/78 96 Room Air 03/25/25 07:34 03/25/25 07:34 03/25/25 07:34 03/25/25 07:34 03/25/25 07:34 03/25/25 07:34 Discharge Plan Plan Patient Disposition: HOME (Self Care) Patient condition on transfer: Stable Prescriptions/Referrals Prescriptions/Med Rec: New docusate sodium [Stool Softener] 100 mg capsule 100 mg PO QDAY 30 Days Qty: 30 0RF ibuprofen 600 mg tablet 600 mg PO Q6H MDD 4 PRN (Reason: fever or pain) 10 Days Qty: 40 0RF Continued Classic 28 mg iron- 800 mcg tablet 1 tab PO QDAY Referrals: Essie Nevarez CNM [Certified Nurse Cyber Threat Analyst, UPHOLSTERY CLEANER] No Primary/Family,Physician [Primary Care Provider] Patient/Caregiver Discharge Instructions Meds to Beds: Yes Discharge Activity: activity as tolerated Education Materials: After a Vaginal , Breast Care After , : Caring for Yourself, Feel Healthy After Print Language: Upper Sorbian Stand Alone Forms: Deisi Award Info., Patient Portal Info Letter Discharge Order Discharge Orders: Discharge (Routine); Ordered 03/25/25 Ordered By: Willi Cook Planned Discharge Date 03/25/25
[2025-03-25] MEDS: DOCUSATE SOD 100 MG CAPSULE PO (09:16)
[2025-03-25] MEDS: PRENATAL VITAMIN/FE FUM/FA TABLET 1 TAB PO (09:16)
--- NOTE | 2025-03-25 09:27 | PC.NURSE ---
0925: Called medical social consultant with pt. update. Pt. scored 11 on depression screening. Pt. must receive medical social consultant referral and be cleared by medical social consultant prior to discharge. Per fabiola she will come up to unit to see pt.
--- NOTE | 2025-03-25 10:49 | PC.NURSE ---
03/25/2025 1050: Per nursing home social worker she spoke with pt. about depression screen scoring; pt. cleared for discharge.
--- NOTE | 2025-03-25 11:24 | PC.SS ---
PIT MANAGER, Thelma, met with patient [id number] to do initial assessment due to scoring greater than 10 on post- depression screening. PIT MANAGER introduced herself, role in the agency, reason for visit, and discussed limits of confidentiality. Patient appeared alert and oriented to self, time, place, and situation. Patient appears stated age. Patient made good eye contact. Patient?s attitude appeared pleasant and cooperative. Patient?s behavior appeared ordinary. Patient?s mood appears ordinary. No signs of delusions or hallucinations. This is 19-year-old, , life-partnered female who presented to deliver her daughter, Rohini. Patient confirmed her address and phone number. Patient lives in a house with her life partner (address: [address] [place] [address]). Father of the baby, Minor Adair (phone: [phone]) is involved in the care. She is receiving WIC. Patient is independent with all daily activities; she denies any DME use. Patient declined any history or current substance use. Patient declined any involvement with CWS. Patient declined any domestic violence at home. Patient denied any history or current mental health illness. SW informed patient that her PPD score was 11. Patient reported that prior to delivering her daughter, she was overwhelmed due to coming to the hospital at least twice per week and being informed that her daughter was delayed in growth by at least 3 weeks. Patient reported that she feels normal now. Patient denied any HI, SI, previous suicide attempts or psychiatric admissions. When medically stable, patient will return home with her life-partner, Minor and daughter. No need for resources at this time.
[2025-03-25 12:00] VITALS: BP 119/73; PULSE 91; RESP 18; TEMP 36.9; O2SAT 99
== END 2025-03-25 12:43 | disposition home or self-care (01) | DRG 560 ==
LOC: S4NX 03-25 08:08 → S4S1 03-26 13:39 → S4SX 03-26 13:39 → S4NX 03-26 13:40
PROVIDERS: Obstetrics & Gynecology; Admitting Provider Obstetrics & Gynecology; Referring Provider Obstetrics & Gynecology; Visit Provider Obstetrics & Gynecology
DX: O41.03X0 Oligohydramnios, third trimester, not applicable or unspecified (principal); O36.5930 Maternal care for other known or suspected poor fetal growth, third trimester, not applicable or unspecified; O69.3XX0 Labor and delivery complicated by short cord, not applicable or unspecified; Z37.0 Single live birth; Z3A.39 39 weeks gestation of pregnancy; O76 Abnormality in fetal heart rate and rhythm complicating labor and delivery
CPT/HCPCS: 36415; 59025; 59409; 76819; 85025; 86780; 86850; 86900; 86901; J2590; J3010; J3490; J7120; A9270

== ENCOUNTER 2025-04-03 19:52 | Emergency (ER) | payer MEDICAID, SELFPAY ==
[2025-04-03 19:55] VITALS: BMI 26.5
[2025-04-03 20:54] VITALS: BP 129/89; PULSE 82; RESP 18; TEMP 36.8; O2SAT 98
--- NOTE | 2025-04-03 21:11 | EDNOTE_ITS ---
ED General RME/HPI General Chief complaint: General Adult/Misc Complain Stated complaint: SYUTURES CAME OUT OF EPISIOTOMY FROM 03/24 Time Seen by Provider: 04/03/25 20:59 Arrival date/time: 04/03/25 19:52 RME / HPI RME / HPI narrative: Pt had vaginal delivery 10 days ago and is c/o wound dehisence along with white/yellow discharge from her vagina. Denies vaginal bleeding, pelvic pain, fever. Related Data Home Medications ?Medication ?Instructions ?Recorded ?Confirmed vits no.126-ferrous fum 1 tab PO QDAY 5 03/23/25 28 mg iron-folic acid 800 mcg tablet (Classic ) Previous Rx's ?Medication ?Instructions ?Recorded docusate sodium 100 mg capsule 100 mg PO QDAY 30 days #30 caps 03/25/25 (Stool Softener) Allergies Allergy/AdvReac Type Severity Reaction Status Date / Time No Known Allergies Allergy Verified 04/03/25 20:00 ED Exam Narrative Physical exam: Constitutional: Vital Signs Reviewed. Well appearing. No acute distress. Not toxic appearing. Head: Normocephalic, atraumatic. Eyes: Conjunctiva clear. ENT: Mucous membranes moist. Neck: Trachea midline. Normal range of motion. No nuchal rigidity. Respiratory: Normal effort. No respiratory distress or accessory muscle use. Neuro: Alert and oriented. Speech normal. No focal gross motor or sensory deficits observed. Skin: Warm, dry, normal color. : On the inferior aspect of right labia majora extending throughout the perineum to the anus there is a dehisced wound with erythematous granulation tissue. Additionally inside the vaginal fornix appears to be some yellowish- white exudate. Wound is not significantly tender and no fluctuance. Psych: Pleasant. Normal affect. Cooperative. Course Course Course Narrative: I consulted Dr. Ashley who will come down and evaluate pts wound and likely re- approximate it. 9:17PM Quality Measures none Orders Category Date Time Status Set Up Suture Tray STAT Care 04/03/25 21:34 Completed Consult to Obstetrics Stat Cons 04/03/25 21:34 Ordered Reevaluation(s) Reevaluation #1: Dr. Ashley had placed a suture in the episiotomy and states it should heal well there is no signs of infection per her evaluation patient safe for discharge Vital Signs Vital signs: Vital Signs Temperature 98.2 F 04/03/25 20:54 Pulse Rate 82 04/03/25 20:54 Respiratory Rate 18 04/03/25 20:54 Blood Pressure 129/89 H 04/03/25 20:54 Pulse Oximetry (%) 98 04/03/25 20:54 Oxygen Delivery Method Room Air 04/03/25 20:54 Discharge Plan Plan Patient Disposition: HOME (Self Care) Prescriptions/Referrals Prescriptions/Med Rec: No Action Classic 28 mg iron- 800 mcg tablet 1 tab PO QDAY docusate sodium [Stool Softener] 100 mg capsule 100 mg PO QDAY 30 Days Qty: 30 0RF Problem List Clinical Impression: Dehiscence of wound Patient/Caregiver Discharge Instructions Education Materials: After Episiotomy Additional Instructions: Follow up with your CUPOLA OPERATOR doctor within 48 hours. Return to the Emergency Room immediately for any new, worsening, continuing symptoms or any concerns at all. Return to the Emergency Room within 48 hours if you are unable to follow up with your CUPOLA OPERATOR doctor within 48 hours Print Language: Polish Stand Alone Forms: Deisi Award Info., Patient Portal Info Letter PA/VICE PRESIDENT FIXED INCOME Supervising Physician PA/VICE PRESIDENT FIXED INCOME Supervising Physician: Dr. Francis MDM Narrative [facility] hospital course (for use when minimal MDM required): MDM Patient presents for episiotomy dehiscence as well as mild discharge 10 days status post vaginal delivery Wound appears to be dehisced with scant yellowish and white exudate Concern for possible mild wound infection complicated by wound dehiscence CUPOLA OPERATOR consulted and agrees to come down to reapproximate wound, ED dispo pending ED course likely DC to follow-up with OB outpatient and 1 week
--- NOTE | 2025-04-03 21:14 | PD.GYNCONS ---
[facility] HPI Consult Narrative History of present illness: Toña is a 19yo s/p uncomplicated on 03/24 with midline episiotomy performed and repaired presenting to ED for concern regarding separation of repaired episiotomy. She notes no pain or bleeding, just worried that she walked too much and opened the repaired episiotomy. When she looked at it, it appeared open to her. No other concerns. cc:: cc: Review of Systems Review of Systems Narrative Review of Systems: Review of Systems Systems Reviewed: All systems reviewed, normal except as documented Constitutional Constitutional: Denies body ache(s), Denies chills, Denies fever(s) and Denies headache(s) ENT Ears, Nose, Mouth, and Throat: Denies headache(s) and Denies vertigo Cardiovascular Cardiovascular: Denies chest pain, Denies palpitations, Denies dyspnea and Denies syncope Respiratory Respiratory: Denies cough, Denies dyspnea Gastrointestinal Gastrointestinal: Denies nausea and Denies vomiting Neurologic Neurologic: Denies convulsions, Denies headache(s), Denies other visual disturbances, Denies syncope and Denies vertigo Past Medical History Past Medical History Comments PMH COMMENT: s/p uncomplicated 03/24 Meds Home Medications and Allergies Home Medications ?Medication ?Instructions ?Recorded ?Confirmed ?Type vits no.126-ferrous fum 1 tab PO QDAY 01/26/25 03/23/25 History 28 mg iron-folic acid 800 mcg tablet (Classic ) Allergies Allergy/AdvReac Type Severity Reaction Status Date / Time No Known Allergies Allergy Verified 04/03/25 20:00 Exam - [facility] OFFICE Vital Signs Temp Pulse Resp BP Pulse Ox O2 Del Method 98.2 F 82 18 129/89 H 98 Room Air 04/03/25 20:54 04/03/25 20:54 04/03/25 20:54 04/03/25 20:54 04/03/25 20:54 04/03/25 20:54 Narrative Exam General: well developed, well nourished, no acute distress, conversant Cardiac: normal heart rate Lungs: breathing without distress Abdomen: soft, non-tender, no rebound or guarding Extremities: no edema of BLE Genital Exam: RN present as associate programmer analyst With gentle pulling at the sides of repaired episiotomy, there is small separation/ gapping , but overall healing well. No erythema/induration/drainage. Discussed with patient and she preferred for it to be oversewn, so the perineum was cleaned with betadine, the area was injected with 1% lidocaine and then perineal separation was oversewn with 3-0 vicryl in running subcuticular fashion to bring edges closely reapproximated. Hemostatic. Well tolerated. Assessment and Plan Assessment and plan (1) episiotomy dehiscence: Status: Acute Assessment and plan: Toña is a 19yo s/p uncomplicated on 03/24 with midline episiotomy performed and repaired presenting to ED for concern regarding separation of repaired episiotomy. Exam revealed small gapping with traction on the sides of perineal portion of episiotomy, no evidence of infection. Patient requested oversewing which was performed, well tolerated. Patient to follow up with JEANNINE Nevarez for visit, reminded her to call clinic to schedule appt Motrin 600mg PO Q6hr prn discomfort (she has this at home)
== END 2025-04-03 23:57 | disposition home or self-care (01) ==
PROVIDERS: Emergency Provider Emergency Medicine
DX: O90.1 Disruption of perineal obstetric wound (principal)
CPT/HCPCS: 99284

== ENCOUNTER 2025-04-19 13:56 | Outpatient (AMB) | payer MEDICAID, SELFPAY ==
[2025-04-19 14:03] VITALS: BP 124/78; PULSE 85; RESP 18; TEMP 36.6; O2SAT 97; BMI 27.3
--- NOTE | 2025-04-19 14:03 | AMBOBPPN_ITS ---
Vital Signs 04/19/25 14:03 Height 1.57 m Height Method Stated Weight 67.358 kg Weight Measurement Method Standing Scale BMI 27.3 BP 124/78 Blood Pressure Source Automatic Cuff Blood Pressure Location Right Upper Arm Position Sitting Respiration 18 Pulse 85 Pulse Source Monitor Temp 97.9 F Temp Source Temporal Artery Scan Pulse Oximetry (%) 97 Oxygen Delivery Method Room Air Allergies/Home Meds Allergies & Medications Allergies No Known Allergies Allergy (Verified 04/19/25 14:04) Medication Reconciliation vits no.126-ferrous fum 28 mg iron-folic acid 800 mcg tablet (Classic ) 1 tab PO QDAY 01/26/25 [History Confirmed 04/19/25] docusate sodium 100 mg capsule (Stool Softener) 100 mg PO QDAY 30 days #30 caps 03/25/25 [Rx Confirmed 04/19/25] amoxicillin 500 mg-potassium clavulanate 125 mg tablet (Augmentin) 1 tab PO BID #14 tabs 04/19/25 [Rx] Intake Visit Data Collection New Patient or Established: Established Patient (seen at [facility] within 3 years) Reason for Visit:: Seen by Clinical Staff ONLY (RN/MA): No Manager Banking Required: No Do You Feel Safe at Home: Yes Authorities Contacted: N/A PCP or OBGYN visit in last 3 months: Yes Date of Last PCP or OBGYN visit: 03/14/25 Hx Now: No Are you currently on any form of Control: No Pain Present Currently: No Pain Scale Used: López-Benoit/Numerical Pain scale:: 0 Smoking Status Smoking Status: Never smoker Immunizations Flu Vaccine in the Last 12 Months: No Flu Vaccine Exclusion Criteria: No Exclusion Criteria SERVICES HOST: Past Medical History Past Medical History: No Hx Neurological Disorders, No Hx Cardiac Disorders, No Hx Cancer, No Hx Blood Disorders, No Hx Anemia, No Hx Gastrointestinal Disorders, No Hx Renal Disease, No Hx Diabetes Mellitus Type 1 and No Hx Diabetes Mellitus Type 2 Questionnaires Covid-19 Vaccine Questionnaire Has patient been vacinated for Covid-19 Have you been vacinated for Covid-19: No Social History Living Situation History Marital Status: Life Partner Lives With: Family Housing: House Tobacco History Smoking Status: Never smoker Second Hand Smoke Exposure: No Alcohol History Alcohol Intake: Never Domestic Abuse History Do You Feel Safe at Home: Yes EPDS - PP Depression Screening [place] Pospartum Depression Screen I have been able to laugh and see the funny side of things: (0) As much as I always could I have looked forward with enjoyment to things: (0) As much as I ever did I have blamed myself unnecessarily when things went wrong: (0) No, never I have been anxious or worried for no good reason: (0) No, not at all I have felt scared or panicky for no very good reason: (0) No, not at all Things have been getting on top of me: (0) No, I have been coping as well as ever I have been so unhappy that I have had difficulty sleeping: (0) No, not at all I have felt sad or miserable: (0) No, not at all I have been so unhappy that I have been crying: (0) No, never The thought of harming myself has occurred to me: (0) Never EPDS completed yes Care OB Visit Log OB Flowsheet Initial Weight: Not Recorded Date -?-?-?-?-?-?-?-?-?-?-?-?- EGA Weight BP Alb Glu CTX Pres Fundal ht FHR Mov Dilation Station Effacement Hx Notes Visit Note 01/26/25 -?-?-?-?-?-?-?-?-?-?-?-?- 31w 2d 69.456 kg 112/70 absent unknown 30 145 active 19 yo for OBI. IUP at 31 weeks. Patient declines Tdap today. Patient is a transfer from Dr. Joaquin's office with records. Denies social habits. Denies surgery. Denies chronic illness. Reports good movement. Denies leaking, bleeding, contractions. Reviewed labs an d dates with patient. Discussed Tdap. Patient declines. labor precautions given. Increase fluids. Discussed diet and weight. Return in 2 weeks 02/08/25 -?-?-?-?-?-?-?-?-?-?-?-?- 33w 1d 71.271 kg 126/79 occasional unknown 30 145 active reports good movement. Denies leaking or bleeding. Patient is taking her vitamins. She reports that she has a good appetite. Taking prenatals Patient to labor and delivery for NST BPP due to size date discrepancy. I will make a referral to Dr. Elliott for sonogram for evaluation of IUGR. Increase fluids. Continue vitamins. Discussed kick count twice a day and ER precautions. Return in 2 weeks 02/22/25 -?-?-?-?-?-?-?-?-?-?-?-?- 35w 1d 72.745 kg 117/67 occasional cephalic 33 135 active Reports good movement. Denies any signs symptoms of labor or labor. Denies leaking, denies bleeding, denies pressure. Occasional contractions Reports good movement. Denies any signs symptoms of labor or labor. Denies leaking, denies bleeding, denies pressure. Occasional contractions. sono results: BPP/NST reactive, 01/26, ARIELA:9. fetus measured 33w2 today, EFW:2224/12.8% GBS today. Referral to Dr. Elliott is pending. Discussed p reterm labor precautions and kick count twice a day. With parameters. I sent patient to in labor and delivery for NST BPP today. Schedule weekly NST BPP's continue vitamins and increase fluids. Return in a week OB check 03/06/25 -?-?-?-?-?-?-?-?-?-?-?-?- 36w 6d 75.07 kg 126/81 occasional cephalic 35 135 active Reports good movement. No complaints of labor. Denies leaking or bleeding. GBS negative. Will amend referral to Dr. Jensen. Discussed labor precautions and kick count twice a day. And patient will continue NST BPP twice a day. The plan is to schedule induction at 39 weeks 03/19/25 -?-?-?-?-?-?-?-?-?-?-?-?- 38w 5d 76.43 kg 123/80 occasional cephalic 37 123 active 1 -3 Reports good movement. Denies contractions. Denies leaking. Denies bleeding. Increased pressure. Patient has NST scheduled for today. Schedule induction of labor for March 24, 2025. Discussed induction with patient. Discussed labor precautions and kick count bid. Discussed danger signs and symptoms and ER precautions. 04/19/25 -?-?-?-?-?-?-?-?-?--?-?-?- 43w 1d 67.358 kg 124/78 ALBERT Calculator Estimated Delivery Date Method Current WG Current Estimate 03/28/25 LMP (Certain) 43w 1d Other Estimates 03/28/25 Ultrasound #1 43w 1d 03/28/25 Ultrasound #2 43w 1d Notes Visit Date: 04/19/25 Last Updated by: Alicia Ba MD visit on 03/24/2025 and was in ED on 04/03/2025 for dehiscence of epi siotomy and it was re-sutured in ED under local anesthesia . On exam the vaginal area and episiotomy is healing well. Patient still feels burning Perineal care and plan augmentin x 7 days and follow up in 4 weeks pelvic rest x 4 weeks / breast and bottle feeding both Visit Date: 03/06/25 Last Updated by: Essie Nevarez CNM GBS-. EFW 12%. Final albert: 03/28/25. IOL @ 39wk Visit Date: 01/26/25 Last Updated by: Essie Nevarez CNM 19 yo . lmp 06/21/24. EDC: 03/28/25. 1st sono: 08/18/24. IUP 8w2. EDC: 03/27/25. EFW: 36%OB panel: , O+,abs-, rpr;;nr, rub imm, hbsag-,hiv-,HC-, GC/CT-, 1 hr gtt normal, A1: 5.0, NIPT/AFP/carrier screen-. PAP PP HPI Interval History: Toña is a 19yo s/p uncomplicated on 03/24 with midline episiotomy performed and repaired presenting to ED on 04/03/2025 for concern regarding separation of repaired episiotomy. She notes no pain or bleeding, just worried that she walked too much and opened the repaired episiotomy. When she looked at it, it appeared open to her. The episiotomy was resutured on 04/03/2025 No other concerns. In Clinic for ED follow up Delivery type: vaginal Office Procedures OBC Clinic LOC & Office Proc's Nursing/Assessment Patient Status: Established Patient OB Clinic Nursing Assessment: Medication Reconciliation, Update PMH in EMR and Vital Signs OB Clinic Coordination of Care: Complex Care and Chronic Disease 1-5, Education Complex Pt/Fam, Consent,records obtained, informed consent and Staff clarify orders Established Patient Charge Established Patient Point Assignment: 90 Established Patient Point Charge: EP Level 3 (80-115) Antepartum Initial or Follow-up Antepartum Initial Visit: Yes Assessment & Plan Diagnosis / Problem List (1) Routine Follow-Up: (2) episiotomy dehiscence: Status: Acute Plan: resutured in ED on 04/03/2025 and healing well still feels burning No abnormal discharge or odor (3) Vaginal delivery: Status: Acute Assessment and Plan: add augmentin and follow up in 4 weeks (FP) Tobacco Smoking Status: Never smoker
== END 2025-04-19 14:31 | disposition home or self-care (01) ==
LOC: HODSOBC 13:56
PROVIDERS: Supervising Provider Obstetrics & Gynecology; Visit Provider Obstetrics & Gynecology
DX: Z39.2 Encounter for routine postpartum follow-up (principal)
CPT/HCPCS: 59425; 99213; G0463